=== PATIENT | male | born 1950 | race Asian ===

== ENCOUNTER 2017-01-05 10:22 | Inpatient (IN) | payer MEDICARE, OTHER ==
[~2017-01-05] VITALS: Ht 162.6 cm; Wt 58.4 kg
[~2017-01-05 10:22] MED LIST: ASPI325T PO; DOCU-119 PO; METF1000 PO; PRAV40TA3 PO
[2017-01-05 10:43] LABS: GLUCOSE COMMENT 1 Doctor Notified; GLUCOSE,POINT OF CARE 255 MG/DL (70-110)
[2017-01-05] MEDS ORDERED: NITROGLYCERIN 2% (1 GM=INCH) PACKET TP ONE (11:00)
[2017-01-05] MEDS ORDERED: NITROGLYCERIN 50 MG/D5% WATER 250 ML IV PRN ×2 (11:00→15:45)
[2017-01-05 11:10] LABS: ANION GAP 14 mmol/L (8-16); CALCIUM, TOTAL 10.5 mg/dL (8.8-10.5); CARBON DIOXIDE 27 mmol/L (22-29); CHLORIDE 98 mmol/L (98-107); CREATININE 1.41 mg/dL (0.60-1.30); GLOMERULAR FILTR. RATE CALC 50 mL/min (>60); POTASSIUM 3.7 mmol/L (3.5-5.1); SODIUM SERUM 139 mmol/L (136-145); UREA NITROGEN, BLOOD 21 mg/dL (7-18)
[2017-01-05 11:14] LABS: BASOPHILS # (AUTO) 0.04 K/uL (0.00-0.20); BASOPHILS % (AUTO) 0.5 % (0.0-2.0); EOSINOPHILS # (AUTO) 0.26 K/uL (0.00-0.70); EOSINOPHILS % (AUTO) 3.25 % (1.0-6.0); HEMATOCRIT 45.5 % (41-53); LYMPHOCYTES # (AUTO) 2.7 K/uL (1.0-4.8); LYMPHOCYTES % (AUTO) 33.8 % (22.0-44.0); MEAN CORPUSCULAR HEMOGLOBIN 20.8 pg (26.0-34.0); MEAN CORPUSCULAR HGB CONC 30.7 G/dL (31.0-37.0); MEAN CORPUSCULAR VOLUME 68 fL (80-100); MONOCYTES # (AUTO) 0.5 K/uL (0.1-1.0); MONOCYTES % (AUTO) 5.9 % (2.0-9.0); NEUTROPHILS # (AUTO) 4.5 K/uL (1.8-7.7); NEUTROPHILS % (AUTO) 56.5 % (40.0-70.0); PLATELET COUNT (AUTO) 210 K/uL (150-450); RED BLOOD CELL COUNT(AUTO) 6.73 MIL/uL (4.50-5.90); RED CELL DISTRIBUTION WIDTH 14.8 % (11.5-14.5)
[2017-01-05 11:20] LABS: INR 0.9 (0.9-1.1)
[2017-01-05 11:30] LABS: B-TYPE NATRIURETIC PEPTIDE 20 pg/mL (0-100)
[2017-01-05 11:36] LABS: ALANINE AMINOTRANSFERASE 13 U/L (12-78); ALBUMIN 3.7 g/dL (3.4-5.0); ASPARTATE AMINOTRANSFERASE 24 U/L (15-37); BILIRUBIN,TOTAL 0.7 mg/dL (0.1-1.0); CREATINE KINASE MB 0.9 ng/mL (0-5); CREATINE KINASE, TOTAL 77 U/L (39-308); TOTAL PROTEIN, SERUM 8.4 g/dL (6.4-8.2)
[2017-01-05 11:46] LABS: RBC MORPHOLOGY COMMENT ABNORMAL RBC MORPH
[2017-01-05] MEDS ORDERED: LABETALOL HCL 5 MG/ML 20 ML VIAL IVP ONE (12:00)
[2017-01-05] MEDS ORDERED: ACETAMINOPHEN 325 MG TABLET PO PRN ×2 (12:15→21:00)
[2017-01-05] MEDS ORDERED: ONDANSETRON HCL 4 MG/2 ML VIAL IVP PRN (12:15)
[2017-01-05] MEDS ORDERED: HYDROCODONE/ACETAMINOPHEN 5-325 MG TABLET PO PRN (12:15)
[2017-01-05] MEDS ORDERED: MORPHINE SULFATE 4 MG/ML SYRINGE IVP PRN (12:15)
[2017-01-05] MEDS ORDERED: METOPROLOL TARTRATE 25 MG TABLET PO ONE (13:00)
[2017-01-05] MEDS ORDERED: METOPROLOL TARTRATE 50 MG TABLET PO ONE (13:00)
[2017-01-05] MEDS ORDERED: SODIUM CHLORIDE 0.9% 100 ML ONE (13:10)
[2017-01-05] MEDS ORDERED: IOVERSOL 320 MG/ML 100 ML VIAL ONE (13:10)
[2017-01-05] MEDS: ATORVASTATIN CALCIUM 40 MG TABLET PO SCH (13:25)
[2017-01-05] MEDS ORDERED: HEPARIN SODIUM,PORCINE 5,000 UNITS/ML VIAL IVP PRN ×2 (15:45)
[2017-01-05] MEDS ORDERED: HEPARIN SODIUM,PORCINE 5,000 UNITS/ML VIAL IVP ONE (15:45)
[2017-01-05] MEDS ORDERED: HEPARIN SODIUM 25000 UNITS/D5W 250 ML IV PRN (15:45)
[2017-01-05 16:00] VITALS: BP 172/86
[2017-01-05 16:38] LABS: PROTHROMBIN TIME 10.1 SEC (9.4-11.6)
[2017-01-05 20:00] VITALS: BP 129/72
[2017-01-05] MEDS ORDERED: ALBUTEROL SULFATE 2.5 MG/0.5 ML NEB SOLUTION NEB PRN (21:00)
[2017-01-05] MEDS ORDERED: OxyCODONE HCL/ACETAMINOPHEN 5-325 MG TABLET PO PRN (21:00)
[2017-01-05] MEDS: METOPROLOL TARTRATE 25 MG TABLET PO SCH (21:00)
[2017-01-05] MEDS ORDERED: MAGNESIUM HYDROXIDE SUSPENSION 30 ML UDCUP PO PRN (21:00)
[2017-01-05] MEDS ORDERED: DEXTROSE 50%-WATER 25 GM/50 ML SYRINGE IVP PRN (21:15)
[2017-01-05] MEDS: DOCUSATE SODIUM 100 MG CAPSULE PO SCH (21:23)
[2017-01-05] MEDS: INSULIN ASPART 100 UNITS/ML SQ PRN (21:23)
[2017-01-05 21:38] VITALS: BP 132/69
[2017-01-06] VITALS (17 sets, daily range): BP systolic 109–161; BP diastolic 49–100
[2017-01-06 05:19] LABS: ALBUMIN 3.2 g/dL (3.4-5.0); BILIRUBIN,TOTAL 0.6 mg/dL (0.1-1.0); CALCIUM, TOTAL 10.1 mg/dL (8.8-10.5); CREATININE 1.3 mg/dL (0.60-1.30); MAGNESIUM 1.8 mg/dL (1.80-2.40); POTASSIUM 3.7 mmol/L (3.5-5.1); TOTAL PROTEIN, SERUM 7.2 g/dL (6.4-8.2)
[2017-01-06 06:01] LABS: BASOPHILS % (AUTO) 0.3 % (0.0-2.0); EOSINOPHILS % (AUTO) 2.5 % (1.0-6.0); HEMATOCRIT 40.6 % (41-53); HEMOGLOBIN 12.9 g/dL (13.5-17.5); LYMPHOCYTES # (AUTO) 4.3 K/uL (1.0-4.8); LYMPHOCYTES % (AUTO) 37.7 % (22.0-44.0); MEAN CORPUSCULAR HEMOGLOBIN 21.1 pg (26.0-34.0); MEAN CORPUSCULAR HGB CONC 31.7 G/dL (31.0-37.0); MEAN CORPUSCULAR VOLUME 66 fL (80-100); MONOCYTES # (AUTO) 0.8 K/uL (0.1-1.0); MONOCYTES % (AUTO) 6.6 % (2.0-9.0); NEUTROPHILS % (AUTO) 52.9 % (40.0-70.0); PLATELET COUNT (AUTO) 190 K/uL (150-450); RED BLOOD CELL COUNT(AUTO) 6.11 MIL/uL (4.50-5.90); RED CELL DISTRIBUTION WIDTH 15.4 % (11.5-14.5); WHITE BLOOD COUNT (AUTO) 11.3 K/uL (4.5-11.0)
[2017-01-06 07:03] LABS: GLUCOSE COMMENT 1 Received Meds; GLUCOSE,POINT OF CARE 201 MG/DL (70-110)
[2017-01-06 07:50] LABS: RBC MORPHOLOGY COMMENT ABNORMAL RBC MORPH
[2017-01-06] MEDS: NITROGLYCERIN 2% (1 GM=INCH) PACKET TP SCH ×3 (08:45→23:15)
[2017-01-06] MEDS: PANTOPRAZOLE SODIUM 40 MG DR TABLET PO SCH (09:00)
[2017-01-06] MEDS: AmLODIPine BESYLATE 5 MG TABLET PO SCH ×2 (09:00→14:11)
[2017-01-06] MEDS: ATORVASTATIN CALCIUM 40 MG TABLET PO SCH (09:00)
[2017-01-06] MEDS: ASPIRIN 81 MG EC TABLET PO SCH (09:00)
[2017-01-06] MEDS: DOCUSATE SODIUM 100 MG CAPSULE PO SCH ×2 (09:00→20:35)
[2017-01-06] MEDS: METOPROLOL TARTRATE 25 MG TABLET PO SCH ×3 (09:00→20:35)
[2017-01-06] MEDS ORDERED: LIDOCAINE HCL/PF 1% 30 ML VIAL ONE (11:39)
[2017-01-06] MEDS ORDERED: IOHEXOL 300 MG/ML 150 ML VIAL ONE (11:39)
[2017-01-06] MEDS ORDERED: HEPARIN SODIUM 1000 UNITS/NS 1,000 ML ONE (11:40)
[2017-01-06] MEDS ORDERED: MIDAZOLAM HCL 2 MG/2 ML VIAL ONE (12:35)
[2017-01-06] MEDS ORDERED: FentaNYL CITRATE-PF 100 MCG/2 ML VIAL ONE (12:35)
[2017-01-06] MEDS ORDERED: SODIUM CHLORIDE 0.9% 500 ML IV ONE (12:44)
[2017-01-06] MEDS ORDERED: HEPARIN SODIUM 1000 UNITS/NS 1,000 ML IARTER ONE (12:44)
[2017-01-06] MEDS ORDERED: IOHEXOL 300 MG/ML 150 ML VIAL IARTER ONE (12:45)
[2017-01-06] MEDS ORDERED: FentaNYL CITRATE-PF 100 MCG/2 ML VIAL IVP ONE (12:45)
[2017-01-06] MEDS ORDERED: MIDAZOLAM HCL 2 MG/2 ML VIAL IVP ONE (12:45)
[2017-01-06] MEDS ORDERED: LIDOCAINE HCL/PF 1% 30 ML VIAL INJ ONE (13:00)
[2017-01-06] MEDS: INSULIN ASPART 100 UNITS/ML SQ PRN ×2 (17:15→20:49)
[2017-01-07 05:52] VITALS: BP 137/72
[2017-01-07 06:02] LABS: BASOPHILS % (AUTO) 0.1 % (0.0-2.0); HEMATOCRIT 39.5 % (41-53); HEMOGLOBIN 12.6 g/dL (13.5-17.5); LYMPHOCYTES # (AUTO) 1.5 K/uL (1.0-4.8); LYMPHOCYTES % (AUTO) 11.9 % (22.0-44.0); MEAN CORPUSCULAR HEMOGLOBIN 21.2 pg (26.0-34.0); MEAN CORPUSCULAR HGB CONC 31.9 G/dL (31.0-37.0); MEAN CORPUSCULAR VOLUME 67 fL (80-100); MONOCYTES # (AUTO) 0.6 K/uL (0.1-1.0); MONOCYTES % (AUTO) 5.1 % (2.0-9.0); NEUTROPHILS # (AUTO) 10.3 K/uL (1.8-7.7); NEUTROPHILS % (AUTO) 80.9 % (40.0-70.0); PLATELET COUNT (AUTO) 215 K/uL (150-450); RED BLOOD CELL COUNT(AUTO) 5.92 MIL/uL (4.50-5.90); RED CELL DISTRIBUTION WIDTH 14.9 % (11.5-14.5); WHITE BLOOD COUNT (AUTO) 12.7 K/uL (4.5-11.0)
[2017-01-07 06:24] LABS: ALBUMIN 3.2 g/dL (3.4-5.0); BILIRUBIN,TOTAL 0.7 mg/dL (0.1-1.0); CALCIUM, TOTAL 9.9 mg/dL (8.8-10.5); CREATININE 1.65 mg/dL (0.60-1.30); POTASSIUM 4.1 mmol/L (3.5-5.1); TOTAL PROTEIN, SERUM 7.3 g/dL (6.4-8.2)
[2017-01-07] MEDS: INSULIN ASPART 100 UNITS/ML SQ PRN ×3 (06:40→17:26)
[2017-01-07 08:22] VITALS: BP 136/75
[2017-01-07] MEDS ORDERED: ATORVASTATIN CALCIUM 40 MG TABLET PO SCH (09:00)
[2017-01-07] MEDS: DOCUSATE SODIUM 100 MG CAPSULE PO SCH (09:21)
[2017-01-07] MEDS: METOPROLOL TARTRATE 25 MG TABLET PO SCH ×2 (09:21→16:11)
[2017-01-07] MEDS: NITROGLYCERIN 2% (1 GM=INCH) PACKET TP SCH ×2 (09:21→16:11)
[2017-01-07] MEDS: PANTOPRAZOLE SODIUM 40 MG DR TABLET PO SCH (09:22)
[2017-01-07] MEDS: ASPIRIN 81 MG EC TABLET PO SCH (09:22)
[2017-01-07] MEDS: AmLODIPine BESYLATE 5 MG TABLET PO SCH (09:22)
[2017-01-07 10:04] LABS: RBC MORPHOLOGY COMMENT ABNORMAL RBC MORPH
[2017-01-07 11:59] VITALS: BP 142/85
[2017-01-07] MEDS ORDERED: ATOR40TA28 PO (14:44)
[2017-01-07] MEDS ORDERED: ASPI-556 PO (14:44)
[2017-01-07] MEDS ORDERED: DSS100 PO (14:44)
[2017-01-07] MEDS ORDERED: AMLO-511 PO (14:44)
[2017-01-07] MEDS ORDERED: METO25 PO (14:45)
[2017-01-07] MEDS ORDERED: NTP TD (14:45)
[2017-01-07] MEDS ORDERED: PANT40TA25 PO (14:46)
[2017-01-07] MEDS ORDERED: INSNOV SQ (14:46)
[2017-01-07] MEDS ORDERED: MOM30 PO (14:47)
[2017-01-07] MEDS ORDERED: OXYC-38 PO (14:48)
[2017-01-07] MEDS ORDERED: ACET-784 PO (14:49)
[2017-01-07 15:39] VITALS: BP 127/57
[2017-01-09 09:35] LABS: GLUCOSE,POINT OF CARE 247 MG/DL (70-110)
[2017-01-09 09:35] LABS: GLUCOSE,POINT OF CARE 147 MG/DL (70-110)
[2017-01-09 09:35] LABS: GLUCOSE COMMENT 1 Received Meds; GLUCOSE,POINT OF CARE 156 MG/DL (70-110)
[2017-01-10 09:27] LABS: GLUCOSE COMMENT 1 Received Meds; GLUCOSE,POINT OF CARE 254 MG/DL (70-110)
[2017-01-10 09:27] LABS: GLUCOSE,POINT OF CARE 141 MG/DL (70-110)
== END 2017-01-07 17:45 | disposition short-term general hospital (02) | DRG 281 ==
LOC: EMS 10:24 → ICU 12:27 → 5S 01-06 18:25
PROVIDERS: ADMIT Internal Medicine; ATTEND Internal Medicine
PROC: 4A023N7 Measurement of Cardiac Sampling and Pressure, Left Heart, Percutaneous Approach (ICD-10-PCS; principal; 2017-01-05)
PROC: B2151ZZ Fluoroscopy of Left Heart using Low Osmolar Contrast (ICD-10-PCS; 2017-01-05)
PROC: B2111ZZ Fluoroscopy of Multiple Coronary Arteries using Low Osmolar Contrast (ICD-10-PCS; 2017-01-05)
DX: I21.4 Non-ST elevation (NSTEMI) myocardial infarction (principal); I16.1 Hypertensive emergency; N17.9 Acute kidney failure, unspecified; J44.9 Chronic obstructive pulmonary disease, unspecified; E11.9 Type 2 diabetes mellitus without complications; F17.200 Nicotine dependence, unspecified, uncomplicated; E78.5 Hyperlipidemia, unspecified; I25.10 Atherosclerotic heart disease of native coronary artery without angina pectoris; E78.00 Pure hypercholesterolemia, unspecified; I10 Essential (primary) hypertension; K59.00 Constipation, unspecified; Z79.84 Long term (current) use of oral hypoglycemic drugs; Z95.1 Presence of aortocoronary bypass graft; Z91.19 Patient's noncompliance with other medical treatment and regimen; Z86.73 Personal history of transient ischemic attack (TIA), and cerebral infarction without residual deficits
CPT/HCPCS: 71260; 72193; 74160; 82962; 83735; 87081; 93005; 93306; 93880; 96365; 96366; 99285; J1644; J2250; J3010; J3490; J7050; Q9967

== ENCOUNTER 2017-04-08 14:38 | Inpatient (IN) | payer MEDICARE, OTHER ==
[~2017-04-08] VITALS: Ht 162.6 cm; Wt 53.6 kg
[~2017-04-08 14:38] MED LIST changes: +ACET-784 PO; +AMLO-511 PO; +ASPI-1213 PO; +ASPI-556 PO; -ASPI325T PO; +ATOR40TA28 PO; -DOCU-119 PO; +DSS100 PO; +INSNOV SQ; -METF1000 PO; +METO25 PO; +MOM30 PO; +NTP TD; +OXYC-38 PO; +PANT40TA25 PO; -PRAV40TA3 PO
[2017-04-08 14:57] LABS: GLUCOSE,POINT OF CARE 128 MG/DL (70-110)
[2017-04-08] MEDS ORDERED: HYDR-4174 PO (14:58)
[2017-04-08] MEDS ORDERED: FAMO20TA8 PO (14:58)
[2017-04-08] MEDS ORDERED: FURO20TA4 PO (14:58)
[2017-04-08] MEDS ORDERED: ACETAMINOPHEN 325 MG TABLET PO ONE (15:15)
[2017-04-08 16:47] LABS: HEMATOCRIT 26.6 % (41-53); HEMOGLOBIN 8.6 g/dL (13.5-17.5); MEAN CORPUSCULAR HEMOGLOBIN 21.9 pg (26.0-34.0); MEAN CORPUSCULAR HGB CONC 32.3 G/dL (31.0-37.0); MEAN CORPUSCULAR VOLUME 68 fL (80-100); PLATELET COUNT (AUTO) 215 K/uL (150-450); RED BLOOD CELL COUNT(AUTO) 3.91 MIL/uL (4.50-5.90); RED CELL DISTRIBUTION WIDTH 17.5 % (11.5-14.5); WHITE BLOOD COUNT (AUTO) 9.5 K/uL (4.5-11.0)
[2017-04-08 17:05] LABS: ANION GAP 11 mmol/L (8-16); CALCIUM, TOTAL 8.6 mg/dL (8.8-10.5); CARBON DIOXIDE 20 mmol/L (22-29); CHLORIDE 102 mmol/L (98-107); CREATININE 7.31 mg/dL (0.60-1.30); GLOMERULAR FILTR. RATE CALC 8 mL/min (>60); POTASSIUM 4.6 mmol/L (3.5-5.1); SODIUM SERUM 133 mmol/L (136-145); UREA NITROGEN, BLOOD 89 mg/dL (7-18)
[2017-04-08 17:10] LABS: ALANINE AMINOTRANSFERASE 17 U/L (12-78); ALBUMIN 3.2 g/dL (3.4-5.0); ASPARTATE AMINOTRANSFERASE 18 U/L (15-37); BILIRUBIN,TOTAL 0.4 mg/dL (0.1-1.0); CREATINE KINASE, TOTAL 61 U/L (39-308); TOTAL PROTEIN, SERUM 7.3 g/dL (6.4-8.2)
[2017-04-08] MEDS ORDERED: HydrALAZINE HCL 20 MG/ML VIAL IVP ONE (17:15)
[2017-04-08] MEDS ORDERED: ACETAMINOPHEN 325 MG TABLET PO PRN (17:45)
[2017-04-08] MEDS ORDERED: ONDANSETRON HCL 4 MG/2 ML VIAL IVP PRN ×2 (17:45→20:45)
[2017-04-08 17:48] LABS: EOSINOPHILS % (MANUAL) 25 % (1-6); LYMPHOCYTES % (MANUAL) 16 % (22-44); RBC MORPHOLOGY COMMENT ABNORMAL R; TOTAL CELLS COUNTED 100
[2017-04-08 17:52] LABS: B-TYPE NATRIURETIC PEPTIDE 1090 pg/mL (0-100)
[2017-04-08 18:52] VITALS: BP 194/95
[2017-04-08 19:49] VITALS: BP 185/93
[2017-04-08] MEDS ORDERED: MORPHINE SULFATE 2 MG/ML SYRINGE IVP PRN (20:45)
[2017-04-08] MEDS ORDERED: ZOLPIDEM TARTRATE 5 MG TABLET PO PRN (20:45)
[2017-04-08] MEDS ORDERED: BISACODYL 10 MG RECTAL RECTAL SUPPOSITORY PR PRN (20:45)
[2017-04-08] MEDS ORDERED: HYDROCODONE/ACETAMINOPHEN 5-325 MG TABLET PO PRN (20:45)
[2017-04-08] MEDS ORDERED: MAGNESIUM HYDROXIDE SUSPENSION 30 ML UDCUP PO PRN (20:45)
[2017-04-08] MEDS: DOCUSATE SODIUM 100 MG CAPSULE PO SCH (20:52)
[2017-04-08] MEDS: METOPROLOL TARTRATE 25 MG TABLET PO SCH (20:52)
[2017-04-08] MEDS: FUROSEMIDE 20 MG/2 ML VIAL IVP SCH (20:52)
[2017-04-08 22:06] VITALS: BP 179/90
[2017-04-08] MEDS: HydrALAZINE HCL 20 MG/ML VIAL IVP PRN (23:55)
[2017-04-08] MEDS: HEPARIN SODIUM,PORCINE 5,000 UNITS/ML VIAL SQ SCH (23:56)
[2017-04-09] VITALS (8 sets, daily range): BP systolic 140–195; BP diastolic 70–89
[2017-04-09] MEDS: HydrALAZINE HCL 20 MG/ML VIAL IVP PRN (06:22)
[2017-04-09 06:36] LABS: CALCIUM, TOTAL 8.9 mg/dL (8.8-10.5); CREATININE 7.52 mg/dL (0.60-1.30); POTASSIUM 4.3 mmol/L (3.5-5.1)
[2017-04-09 06:51] LABS: HEMATOCRIT 28.2 % (41-53); HEMOGLOBIN 8.8 g/dL (13.5-17.5); MEAN CORPUSCULAR HEMOGLOBIN 21.5 pg (26.0-34.0); MEAN CORPUSCULAR HGB CONC 31.1 G/dL (31.0-37.0); MEAN CORPUSCULAR VOLUME 69 fL (80-100); PLATELET COUNT (AUTO) 153 K/uL (150-450); RED BLOOD CELL COUNT(AUTO) 4.08 MIL/uL (4.50-5.90); RED CELL DISTRIBUTION WIDTH 18.5 % (11.5-14.5); WHITE BLOOD COUNT (AUTO) 9.4 K/uL (4.5-11.0)
[2017-04-09 07:49] LABS: BAND NEUTROPHILS % (MANUAL) 1 % (1-5); EOSINOPHILS % (MANUAL) 20 % (1-6); LYMPHOCYTES % (MANUAL) 19 % (22-44); TOTAL CELLS COUNTED 100
[2017-04-09] MEDS: ACETAMINOPHEN 325 MG TABLET PO PRN (08:02)
[2017-04-09] MEDS: FUROSEMIDE 20 MG/2 ML VIAL IVP SCH (08:03)
[2017-04-09] MEDS: HEPARIN SODIUM,PORCINE 5,000 UNITS/ML VIAL SQ SCH ×3 (08:03→23:54)
[2017-04-09] MEDS: ASPIRIN 81 MG EC TABLET PO SCH (08:03)
[2017-04-09] MEDS: ATORVASTATIN CALCIUM 40 MG TABLET PO SCH (08:03)
[2017-04-09] MEDS: DOCUSATE SODIUM 100 MG CAPSULE PO SCH ×2 (08:03→20:32)
[2017-04-09] MEDS: PANTOPRAZOLE SODIUM 40 MG DR TABLET PO SCH (08:03)
[2017-04-09] MEDS: METOPROLOL TARTRATE 25 MG TABLET PO SCH ×2 (08:03→20:32)
[2017-04-09] MEDS ORDERED: CloNIDine HCL 0.1 MG TABLET PO PRN (08:45)
[2017-04-09] MEDS: AmLODIPine BESYLATE 10 MG TABLET PO SCH (09:00)
[2017-04-09] MEDS ORDERED: AmLODIPine BESYLATE 5 MG TABLET PO SCH (09:00)
[2017-04-10] VITALS (7 sets, daily range): BP systolic 126–184; BP diastolic 60–85
[2017-04-10 07:15] LABS: HEMOGLOBIN 8.7 g/dL (13.5-17.5); MEAN CORPUSCULAR HEMOGLOBIN 21.6 pg (26.0-34.0); MEAN CORPUSCULAR HGB CONC 31.3 G/dL (31.0-37.0); MEAN CORPUSCULAR VOLUME 69 fL (80-100); PLATELET COUNT (AUTO) 220 K/uL (150-450); RED BLOOD CELL COUNT(AUTO) 4.06 MIL/uL (4.50-5.90); RED CELL DISTRIBUTION WIDTH 18.6 % (11.5-14.5)
[2017-04-10 07:17] LABS: CALCIUM, TOTAL 8.8 mg/dL (8.8-10.5); CREATININE 7.76 mg/dL (0.60-1.30); POTASSIUM 4.2 mmol/L (3.5-5.1)
[2017-04-10] MEDS: PANTOPRAZOLE SODIUM 40 MG DR TABLET PO SCH (07:47)
[2017-04-10] MEDS: METOPROLOL TARTRATE 25 MG TABLET PO SCH ×2 (07:47→22:13)
[2017-04-10] MEDS: DOCUSATE SODIUM 100 MG CAPSULE PO SCH ×2 (07:47→19:56)
[2017-04-10] MEDS: ASPIRIN 81 MG EC TABLET PO SCH (07:47)
[2017-04-10] MEDS: ATORVASTATIN CALCIUM 40 MG TABLET PO SCH (07:47)
[2017-04-10] MEDS: AmLODIPine BESYLATE 10 MG TABLET PO SCH (07:47)
[2017-04-10] MEDS: HEPARIN SODIUM,PORCINE 5,000 UNITS/ML VIAL SQ SCH (07:48)
[2017-04-10 08:52] LABS: BAND NEUTROPHILS % (MANUAL) 2 % (1-5); EOSINOPHILS % (MANUAL) 16 % (1-6); LYMPHOCYTES % (MANUAL) 18 % (22-44); TOTAL CELLS COUNTED 100
[2017-04-10 08:53] LABS: RBC MORPHOLOGY COMMENT ABNORMAL R
[2017-04-10] MEDS: HydrALAZINE HCL 25 MG TABLET PO SCH ×3 (09:00→19:56)
[2017-04-10 13:06] LABS: APPEARANCE,URINE CLEAR (CLEAR); GLUCOSE, URINE (UA) NEGATIVE (NEGATIVE); KETONES,URINE NEGATIVE (NEGATIVE); LEUKOCYTE ESTERASE ,URINE NEGATIVE (NEGATIVE); OCCULT BLOOD,URINE NEGATIVE (NEGATIVE); PH,URINE 5.5 (5.0-8.0); PROTEIN,URINE SEE CONFIRM (NEGATIVE)
[2017-04-10 13:40] LABS: ADD UA MICROSCOPIC YES; SULFOSALICYLIC ACID,URINE 3+ (Negative)
[2017-04-10 13:47] LABS: RBC,URINE None Seen /HPF (0-2); WBC,URINE 0-2 /HPF (0-5)
[2017-04-10 13:48] LABS: COARSE GRANULAR CASTS,URINE 0-2 /LPF (None Seen); SQUAMOUS EPITHELIAL CELL,UR None Seen /LPF (None Seen)
[2017-04-11 05:01] VITALS: BP 139/61
[2017-04-11] MEDS: ACETAMINOPHEN 325 MG TABLET PO PRN (05:36)
[2017-04-11 06:47] LABS: HEMATOCRIT 25.6 % (41-53); HEMOGLOBIN 8.2 g/dL (13.5-17.5); MEAN CORPUSCULAR HGB CONC 32.2 G/dL (31.0-37.0); MEAN CORPUSCULAR VOLUME 69 fL (80-100); PLATELET COUNT (AUTO) 156 K/uL (150-450); RED BLOOD CELL COUNT(AUTO) 3.73 MIL/uL (4.50-5.90); RED CELL DISTRIBUTION WIDTH 17.9 % (11.5-14.5); WHITE BLOOD COUNT (AUTO) 7.8 K/uL (4.5-11.0)
[2017-04-11 07:24] LABS: ALBUMIN 2.9 g/dL (3.4-5.0); BILIRUBIN,TOTAL 0.3 mg/dL (0.1-1.0); CALCIUM, TOTAL 8.6 mg/dL (8.8-10.5); CREATININE 7.67 mg/dL (0.60-1.30); MAGNESIUM 2.2 mg/dL (1.80-2.40); PHOSPHORUS 5.4 mg/dL (2.5-4.9); POTASSIUM 4.3 mmol/L (3.5-5.1); TOTAL PROTEIN, SERUM 6.8 g/dL (6.4-8.2)
[2017-04-11 07:42] VITALS: BP 143/75
[2017-04-11 07:49] LABS: BAND NEUTROPHILS % (MANUAL) 12 % (1-5); EOSINOPHILS % (MANUAL) 2 % (1-6); LYMPHOCYTES % (MANUAL) 20 % (22-44); RBC MORPHOLOGY COMMENT ABNORMAL RBC MORPH; TOTAL CELLS COUNTED 100
[2017-04-11] MEDS: HydrALAZINE HCL 25 MG TABLET PO SCH ×3 (09:16→20:09)
[2017-04-11] MEDS: METOPROLOL TARTRATE 25 MG TABLET PO SCH ×2 (09:16→20:09)
[2017-04-11] MEDS: PANTOPRAZOLE SODIUM 40 MG DR TABLET PO SCH (09:16)
[2017-04-11] MEDS: AmLODIPine BESYLATE 10 MG TABLET PO SCH (09:16)
[2017-04-11] MEDS: DOCUSATE SODIUM 100 MG CAPSULE PO SCH ×2 (09:16→20:08)
[2017-04-11] MEDS: ATORVASTATIN CALCIUM 40 MG TABLET PO SCH (09:17)
[2017-04-11 09:40] LABS: PROTHROMBIN TIME 10.9 SEC (9.4-11.6)
[2017-04-11 11:22] VITALS: BP 130/58
[2017-04-11 12:08] LABS: ALBUMIN (IFE & ELECTROPHOR) 3.4 g/dL (2.9-4.4); ALBUMIN/GLOBULIN RATIO (IFE) 1.1 (0.7-1.7); ALPHA-2 (IFE & PEP) 0.6 g/dL (0.4-1.0); IGG (IMMUNOFIXATION) 1667 mg/dL (700-1600); M-SPIKE (IEP) Not Observed g/dL (Not Observed); TOTAL PROTEIN 6.7 g/dL (6.0-8.5)
[2017-04-11] MEDS ORDERED: MIDAZOLAM HCL 2 MG/2 ML VIAL ONE (12:38)
[2017-04-11] MEDS ORDERED: FentaNYL CITRATE-PF 100 MCG/2 ML VIAL ONE (12:38)
[2017-04-11] MEDS ORDERED: LIDOCAINE HCL/PF 1% 30 ML VIAL ONE (14:21)
[2017-04-11] MEDS ORDERED: MIDAZOLAM HCL 2 MG/2 ML VIAL IVP ONE (14:22)
[2017-04-11] MEDS ORDERED: FentaNYL CITRATE-PF 100 MCG/2 ML VIAL IVP ONE (14:22)
[2017-04-11 16:28] VITALS: BP 154/77
[2017-04-11 19:23] VITALS: BP 153/78
[2017-04-11 23:30] VITALS: BP 156/75
[2017-04-12 04:19] VITALS: BP 156/74
[2017-04-12 05:13] LABS: COMPLEMENT C3 119 mg/dL (82-167); COMPLEMENT C4 31 mg/dL (14-44)
[2017-04-12 06:37] LABS: HEMATOCRIT 26.7 % (41-53); HEMOGLOBIN 8.3 g/dL (13.5-17.5); MEAN CORPUSCULAR HEMOGLOBIN 21.3 pg (26.0-34.0); MEAN CORPUSCULAR VOLUME 69 fL (80-100); PLATELET COUNT (AUTO) 158 K/uL (150-450); RED BLOOD CELL COUNT(AUTO) 3.89 MIL/uL (4.50-5.90); RED CELL DISTRIBUTION WIDTH 17.4 % (11.5-14.5); WHITE BLOOD COUNT (AUTO) 9.9 K/uL (4.5-11.0)
[2017-04-12 07:08] LABS: ALBUMIN 2.9 g/dL (3.4-5.0); BILIRUBIN,TOTAL 0.3 mg/dL (0.1-1.0); CALCIUM, TOTAL 8.7 mg/dL (8.8-10.5); CREATININE 7.79 mg/dL (0.60-1.30); MAGNESIUM 2.2 mg/dL (1.80-2.40); POTASSIUM 4.5 mmol/L (3.5-5.1); TOTAL PROTEIN, SERUM 6.6 g/dL (6.4-8.2)
[2017-04-12 07:48] VITALS: BP 151/69
[2017-04-12] MEDS: PANTOPRAZOLE SODIUM 40 MG DR TABLET PO SCH (07:53)
[2017-04-12] MEDS: DOCUSATE SODIUM 100 MG CAPSULE PO SCH ×2 (07:53→20:27)
[2017-04-12] MEDS: METOPROLOL TARTRATE 25 MG TABLET PO SCH ×2 (07:53→20:27)
[2017-04-12] MEDS: HydrALAZINE HCL 25 MG TABLET PO SCH ×3 (07:53→20:27)
[2017-04-12] MEDS: ATORVASTATIN CALCIUM 40 MG TABLET PO SCH (07:53)
[2017-04-12] MEDS: AmLODIPine BESYLATE 10 MG TABLET PO SCH (07:53)
[2017-04-12 09:06] LABS: HEPATITIS Bs ANTIGEN SCREEN P Negative (Negative); HEPATITIS C AB SCREEN <0.1 s/co ratio (0.0-0.9)
[2017-04-12] MEDS: EPOETIN ALFA 10,000 UNITS/ML 2 ML VIAL SQ SCH (09:22)
[2017-04-12 09:24] LABS: BAND NEUTROPHILS % (MANUAL) 9 % (1-5); EOSINOPHILS % (MANUAL) 6 % (1-6); LYMPHOCYTES % (MANUAL) 19 % (22-44); RBC MORPHOLOGY COMMENT ABNORMAL R; TOTAL CELLS COUNTED 100
[2017-04-12 11:23] VITALS: BP 118/68
[2017-04-12 12:12] LABS: ALBUMIN/GLOBULIN RAITO (PEP) 0.9 (0.7-1.7); ALPHA-1 GLOBULINS(PEP) 0.2 g/dL (0.0-0.4); ALPHA-2 GLOBULINS (PEP) 0.6 g/dL (0.4-1.0); BETA (PEP) 0.9 g/dL (0.7-1.3); GAMMA GLOBULINS (PEP) 1.8 g/dL (0.4-1.8); GLOBULIN TOTAL (PEP) 3.6 g/dL (2.2-3.9); M-SPIKE (PEP) Not Observed g/dL (Not Observed); TOTAL PROTEIN 6.7 g/dL (6.0-8.5)
[2017-04-12 15:03] VITALS: BP 143/54
[2017-04-12 19:33] VITALS: BP 158/76
[2017-04-12 23:24] VITALS: BP 159/84
[2017-04-13 01:26] VITALS: BP 169/94
[2017-04-13 04:25] VITALS: BP 156/79
[2017-04-13 06:08] LABS: HEMATOCRIT 26.6 % (41-53); HEMOGLOBIN 8.5 g/dL (13.5-17.5); MEAN CORPUSCULAR HEMOGLOBIN 21.8 pg (26.0-34.0); MEAN CORPUSCULAR HGB CONC 31.9 G/dL (31.0-37.0); MEAN CORPUSCULAR VOLUME 69 fL (80-100); PLATELET COUNT (AUTO) 162 K/uL (150-450); RED BLOOD CELL COUNT(AUTO) 3.88 MIL/uL (4.50-5.90); WHITE BLOOD COUNT (AUTO) 9.6 K/uL (4.5-11.0)
[2017-04-13 06:24] LABS: ALBUMIN 2.9 g/dL (3.4-5.0); BILIRUBIN,TOTAL 0.3 mg/dL (0.1-1.0); CALCIUM, TOTAL 8.7 mg/dL (8.8-10.5); CREATININE 7.55 mg/dL (0.60-1.30); MAGNESIUM 2.1 mg/dL (1.80-2.40); PHOSPHORUS 4.6 mg/dL (2.5-4.9); POTASSIUM 4.3 mmol/L (3.5-5.1); TOTAL PROTEIN, SERUM 6.3 g/dL (6.4-8.2)
[2017-04-13 07:16] VITALS: BP 174/82
[2017-04-13 07:39] LABS: BAND NEUTROPHILS % (MANUAL) 10 % (1-5); EOSINOPHILS % (MANUAL) 2 % (1-6); LYMPHOCYTES % (MANUAL) 24 % (22-44); RBC MORPHOLOGY COMMENT ABNORMAL RBC MORPH; TOTAL CELLS COUNTED 100
[2017-04-13] MEDS: ATORVASTATIN CALCIUM 40 MG TABLET PO SCH (08:22)
[2017-04-13] MEDS: HydrALAZINE HCL 25 MG TABLET PO SCH ×3 (08:22→20:23)
[2017-04-13] MEDS: DOCUSATE SODIUM 100 MG CAPSULE PO SCH ×2 (08:22→20:23)
[2017-04-13] MEDS: AmLODIPine BESYLATE 10 MG TABLET PO SCH (08:22)
[2017-04-13] MEDS: PANTOPRAZOLE SODIUM 40 MG DR TABLET PO SCH (08:22)
[2017-04-13] MEDS: METOPROLOL TARTRATE 25 MG TABLET PO SCH ×2 (08:22→20:23)
[2017-04-13 11:19] VITALS: BP 154/63
[2017-04-13 15:30] LABS: ANA,IFA (TITER & PATTERN) Negative; ANTI-PROTEINASE 3 (PR3) <3.5 U/mL (0.0-3.5); ATYPICAL P-ANCA AB <1:20 titer (Neg:<1:20); CYTOPLASMIC (C-ANCA) AB, IGG <1:20 titer (Neg:<1:20); PERINUCLEAR (P-ANCA) IGG AB <1:20 titer (Neg:<1:20)
[2017-04-13 16:28] VITALS: BP 161/70
[2017-04-13 19:18] VITALS: BP 155/81
[2017-04-14] VITALS (7 sets, daily range): BP systolic 155–168; BP diastolic 73–85
[2017-04-14 06:14] LABS: HEMATOCRIT 26.7 % (41-53); HEMOGLOBIN 8.6 g/dL (13.5-17.5); MEAN CORPUSCULAR HEMOGLOBIN 21.9 pg (26.0-34.0); MEAN CORPUSCULAR HGB CONC 32.4 G/dL (31.0-37.0); MEAN CORPUSCULAR VOLUME 68 fL (80-100); PLATELET COUNT (AUTO) 167 K/uL (150-450); RED BLOOD CELL COUNT(AUTO) 3.94 MIL/uL (4.50-5.90); RED CELL DISTRIBUTION WIDTH 18.3 % (11.5-14.5); WHITE BLOOD COUNT (AUTO) 10.1 K/uL (4.5-11.0)
[2017-04-14 06:25] LABS: BILIRUBIN,TOTAL 0.3 mg/dL (0.1-1.0); CALCIUM, TOTAL 8.8 mg/dL (8.8-10.5); CREATININE 7.2 mg/dL (0.60-1.30); MAGNESIUM 2.1 mg/dL (1.80-2.40); POTASSIUM 4.2 mmol/L (3.5-5.1); TOTAL PROTEIN, SERUM 6.9 g/dL (6.4-8.2)
[2017-04-14 07:38] LABS: ALBUMIN URINE (ELP24) 50.7 %; ALPHA-1 URINE (ELP24) 1.7 %; ALPHA-2 URINE(ELP24) 6.4 %; BETA URINE(ELP24) 13.5 %; GAMMA URINE(ELP24) 27.7 %; TOTAL PROTEIN URINE 158.5 mg/dL (Not Estab.)
[2017-04-14] MEDS: DOCUSATE SODIUM 100 MG CAPSULE PO SCH ×2 (08:08→20:26)
[2017-04-14] MEDS: PANTOPRAZOLE SODIUM 40 MG DR TABLET PO SCH (08:08)
[2017-04-14] MEDS: AmLODIPine BESYLATE 10 MG TABLET PO SCH (08:08)
[2017-04-14] MEDS: ATORVASTATIN CALCIUM 40 MG TABLET PO SCH (08:08)
[2017-04-14] MEDS: METOPROLOL TARTRATE 25 MG TABLET PO SCH ×2 (08:08→20:27)
[2017-04-14] MEDS: HydrALAZINE HCL 25 MG TABLET PO SCH ×3 (08:08→20:27)
[2017-04-14] MEDS: EPOETIN ALFA 10,000 UNITS/ML 2 ML VIAL SQ SCH (08:09)
[2017-04-14 08:32] LABS: BAND NEUTROPHILS % (MANUAL) 8 % (1-5); EOSINOPHILS % (MANUAL) 3 % (1-6); LYMPHOCYTES % (MANUAL) 25 % (22-44); TOTAL CELLS COUNTED 100
[2017-04-14 08:34] LABS: RBC MORPHOLOGY COMMENT ABNORMAL R
[2017-04-15 05:04] VITALS: BP 160/82
[2017-04-15 07:16] LABS: CALCIUM, TOTAL 8.9 mg/dL (8.8-10.5); CREATININE 7.23 mg/dL (0.60-1.30); MAGNESIUM 2.1 mg/dL (1.80-2.40); PHOSPHORUS 3.9 mg/dL (2.5-4.9)
[2017-04-15 07:20] VITALS: BP 152/76
[2017-04-15] MEDS: DOCUSATE SODIUM 100 MG CAPSULE PO SCH (08:39)
[2017-04-15] MEDS: ATORVASTATIN CALCIUM 40 MG TABLET PO SCH (08:39)
[2017-04-15] MEDS: HydrALAZINE HCL 25 MG TABLET PO SCH (08:39)
[2017-04-15] MEDS: PANTOPRAZOLE SODIUM 40 MG DR TABLET PO SCH (08:39)
[2017-04-15] MEDS: AmLODIPine BESYLATE 10 MG TABLET PO SCH (08:39)
[2017-04-15] MEDS ORDERED: LIDOCAINE HCL/PF 1% 30 ML VIAL ONE (08:57)
[2017-04-15] MEDS ORDERED: HEPARIN SODIUM,PORCINE 1,000 UNITS/ML VIAL ONE (08:58)
[2017-04-15] MEDS ORDERED: SODIUM CHLORIDE 0.9% 1,000 ML IV ONE (08:59)
[2017-04-15] MEDS ORDERED: HYDROmorphone 2 MG/ML SYRINGE IVP PRN (10:15)
[2017-04-15] MEDS ORDERED: FentaNYL CITRATE-PF 100 MCG/2 ML VIAL IVP PRN (10:15)
[2017-04-15] MEDS ORDERED: MEPERIDINE-PF 25 MG/ML SYRINGE IVP PRN (10:15)
[2017-04-15] MEDS ORDERED: SODIUM CHLORIDE 0.9% 0 ML ONE (10:26)
[2017-04-15] MEDS ORDERED: HYDROCODONE/ACETAMINOPHEN 5-325 MG TABLET PO PRN (11:15)
[2017-04-15] MEDS ORDERED: ACETAMINOPHEN 325 MG TABLET PO PRN (11:15)
[2017-04-15] MEDS: METOPROLOL TARTRATE 25 MG TABLET PO SCH (12:24)
[2017-04-15] MEDS ORDERED: HYDR25TA84 PO (14:48)
[2017-04-15] MEDS ORDERED: ATOR40TA71 PO (14:48)
[2017-04-15] MEDS ORDERED: METO25 PO (14:48)
[2017-04-15] MEDS ORDERED: AMLO10TA55 PO (14:48)
[2017-04-15] MEDS ORDERED: LABE200T PO (14:48)
[2017-04-15 15:27] VITALS: BP 149/78
[2017-04-15] MEDS ORDERED: FentaNYL CITRATE-PF 100 MCG/2 ML VIAL IVP ONE (15:39)
[2017-04-15] MEDS ORDERED: LIDOCAINE HCL/PF 2% 5 ML SYRINGE IVP ONE (15:39)
[2017-04-15] MEDS ORDERED: KETAMINE HCL 50 MG/ML 10 ML VIAL IVP ONE (15:39)
[2017-04-15] MEDS ORDERED: PROPOFOL 1% 20 ML VIAL IVP ONE (15:39)
[2017-04-15] MEDS ORDERED: HEPARIN SODIUM,PORCINE 1,000 UNITS/ML 10 ML VIAL IVP ONE (15:39)
[2017-04-15] MEDS ORDERED: MIDAZOLAM HCL 2 MG/2 ML VIAL IVP ONE (15:39)
[2017-04-15] MEDS ORDERED: DiphenhydrAMINE HCL 50 MG/ML VIAL IVP ONE (15:39)
[2017-04-15] MEDS ORDERED: LABETALOL HCL 200 MG TABLET PO SCH (16:00)
[2017-04-15] MEDS ORDERED: OXYGEN THERAPY IH SCH (20:00)
[2017-04-17 10:23] LABS: GBM IGA ANTIBODY (IFA) < 1:10 titer
== END 2017-04-15 15:40 | disposition home or self-care (01) | DRG 252 ==
LOC: EMS 14:40 → 5S 17:45 → 5N 04-14 20:40
PROVIDERS: ADMIT Internal Medicine; ATTEND Internal Medicine
PROC: 0TB03ZX Excision of Right Kidney, Percutaneous Approach, Diagnostic (ICD-10-PCS; 2017-04-11)
PROC: 05CF3ZZ Extirpation of Matter from Left Cephalic Vein, Percutaneous Approach (ICD-10-PCS; 2017-04-15)
PROC: 03180ZD Bypass Left Brachial Artery to Upper Arm Vein, Open Approach (ICD-10-PCS; principal; 2017-04-15 09:30)
DX: I13.0 Hypertensive heart and chronic kidney disease with heart failure and stage 1 through stage 4 chronic kidney disease, or unspecified chronic kidney disease (principal); I50.31 Acute diastolic (congestive) heart failure; G93.41 Metabolic encephalopathy; N17.9 Acute kidney failure, unspecified; I75.89 Atheroembolism of other site; E11.21 Type 2 diabetes mellitus with diabetic nephropathy; F17.200 Nicotine dependence, unspecified, uncomplicated; D50.9 Iron deficiency anemia, unspecified; N18.6 End stage renal disease; E21.3 Hyperparathyroidism, unspecified; E11.22 Type 2 diabetes mellitus with diabetic chronic kidney disease; E55.9 Vitamin D deficiency, unspecified; I50.9 Heart failure, unspecified; N40.0 Benign prostatic hyperplasia without lower urinary tract symptoms; E78.5 Hyperlipidemia, unspecified; I25.10 Atherosclerotic heart disease of native coronary artery without angina pectoris; Z95.1 Presence of aortocoronary bypass graft; Z86.73 Personal history of transient ischemic attack (TIA), and cerebral infarction without residual deficits; Z99.2 Dependence on renal dialysis
CPT/HCPCS: 50200; 70450; 76770; 80074; 81050; 82570; 82575; 82607; 82652; 82728; 82746; 82784; 82962; 83516; 83540; 83550; 83735; 83970; 84100; 84155; 84156; 84165; 84166; 84300; 84540; 86038; 86160; 86255; 86256; 86334; 86430; 87389; 88300; 88304; 88305; 88313; 88346; 88348; 93005; 93306; 93970; 96374; 99291; J0360; J0690; J0885; J1200; J1644; J1940; J2250; J2704; J3010; J3490; J7030; J7050